=== PATIENT | female | born 1955 | race Two or more races ===

== ENCOUNTER 2016-08-08 08:46 | Outpatient (CLI) | payer BC ==
[~2016-08-08 08:46] MED LIST: AMLO10TA2 PO; ASPI81TA2 PO; ATEN25TA PO; LISI40TA4 PO; METH5TAB6 PO; SIMV20TA2 PO
== END 2016-08-08 23:59 | disposition home or self-care (01) ==
LOC: MRI 08:46
PROVIDERS: ATTEND Legal Medicine
DX: M48.02 Spinal stenosis, cervical region (principal); M50.21 Other cervical disc displacement, high cervical region; M50.222 Other cervical disc displacement at C5-C6 level; M12.88 Other specific arthropathies, not elsewhere classified, other specified site; M51.26 Other intervertebral disc displacement, lumbar region; M40.46 Postural lordosis, lumbar region; M24.50 Contracture, unspecified joint
CPT/HCPCS: 72141-TC; 72148-TC

== ENCOUNTER 2017-10-29 08:44 | Outpatient (CLI) | payer BC ==
[~2017-10-29 08:44] MED LIST changes: +ASPI-1169 PO; -ASPI81TA2 PO
== END 2017-10-29 23:59 | disposition home or self-care (01) ==
LOC: MRI 08:44
PROVIDERS: ATTEND Legal Medicine
DX: S83.242A Other tear of medial meniscus, current injury, left knee, initial encounter (principal); M22.42 Chondromalacia patellae, left knee; M25.462 Effusion, left knee; R60.9 Edema, unspecified; X58.XXXA Exposure to other specified factors, initial encounter; Y93.89 Activity, other specified; Y92.89 Other specified places as the place of occurrence of the external cause; Y99.8 Other external cause status
CPT/HCPCS: 73721-TC

== ENCOUNTER 2020-09-14 11:37 | Outpatient (CLI) | payer BC ==
[~2020-09-14 11:37] MED LIST changes: +AMLO-213 PO; -AMLO10TA2 PO; +LISI40TA13 PO; -LISI40TA4 PO
== END 2020-09-14 23:59 | disposition home or self-care (01) ==
LOC: MRI 11:37
PROVIDERS: ATTEND Legal Medicine
DX: M47.22 Other spondylosis with radiculopathy, cervical region (principal); M50.13 Cervical disc disorder with radiculopathy, cervicothoracic region; M51.26 Other intervertebral disc displacement, lumbar region; M48.061 Spinal stenosis, lumbar region without neurogenic claudication; M25.78 Osteophyte, vertebrae
CPT/HCPCS: 72141-TC; 72148-TC

== ENCOUNTER → 2021-02-19 | Outpatient (CLI) | payer BC | END | disposition home or self-care (01) | LOC: MRI 10:07 | PROVIDERS: ATTEND Neurological Surgery | DX: M50.21 Other cervical disc displacement, high cervical region (principal); M48.02 Spinal stenosis, cervical region; M25.78 Osteophyte, vertebrae | CPT/HCPCS: 72141-TC ==

== ENCOUNTER 2021-03-15 08:29 | Outpatient (CLI) | payer BC | END 2021-03-15 23:59 | disposition home or self-care (01) | LOC: LAB 08:29 | PROVIDERS: ATTEND Specialist | DX: Z01.812 Encounter for preprocedural laboratory examination (principal); Z20.822 Contact with and (suspected) exposure to COVID-19 | CPT/HCPCS: C9803; U0003 ==

== ENCOUNTER 2021-03-22 05:34 | Inpatient (IN) | payer BC ==
[~2021-03-22] VITALS: Ht 160 cm; Wt 68.0 kg
--- NOTE | 2021-03-22 06:00 | NUR ---
MS LICENSED MARRIAGE AND FAMILY THERAPIST NOTE PATIENT ARRIVED TO UNIT FOR DAY SURGERY COMPLETELY AMBULATORY. A/OX4. NO S/S OF DISTRESS; BREATHING UNLABORED; BREATHING ON ROOM AIR. IV INSERTED 18# RAC SL. PATIENT WAS ORIENTED TO UNIT. HOSPITAL GOWN GIVEN. VS WNL (SEE NOTED DOCUMENTATION). BELONGINGS WERE ACCOUNTED FOR AND LOGGED IN SHEET AND PLACED IN CHART. PATIENT IS DUE FOR DAY SURGERY LATER ON THIS A.M. CONSENTS SIGNED. SAFETY MEASURES IN PLACE: BED AT LOWEST POSITION, RAILS UPX2, CALL [place] WITHIN REACH.
[2021-03-22] MEDS ORDERED: ROSU40TA PO (06:44)
[2021-03-22] MEDS ORDERED: ALEN70SO3 PO (06:44)
[2021-03-22] MEDS ORDERED: LEVO25TA7 PO (06:44)
[2021-03-22] MEDS ORDERED: APIX5TAB PO (06:44)
[2021-03-22] MEDS ORDERED: DAPA1TAB5 PO (06:44)
[2021-03-22 07:20] VITALS: BP 145/71
[2021-03-22] MEDS ORDERED: BUPIVACAINE MPF W/EPI 0.25% 30 ML VIAL ONE (07:50)
[2021-03-22] MEDS ORDERED: LIDOCAINE 1% INJ 50 ML MDV IJ ONE (07:50)
[2021-03-22] MEDS ORDERED: CEFAZOLIN 1 GM ONE (07:50)
[2021-03-22] MEDS ORDERED: HEMOSTATIC MATRIX 8 ML 1 EACH PAD MC ONE ×3 (07:51→12:00)
[2021-03-22] MEDS ORDERED: GELATIN SPONGE,ABSORBABLE 1 EA SPONGE TP ONE (07:52)
[2021-03-22] MEDS ORDERED: THROMBIN (BOVINE) 5,000 UNITS VIAL TP ONE (07:53)
[2021-03-22] MEDS ORDERED: PROPOFOL 100 ML ONE ×2 (07:55→07:56)
[2021-03-22] MEDS ORDERED: HYDROMORPHONE INJ 2 MG/ML DISP.SYRIN ONE (07:56)
[2021-03-22] MEDS ORDERED: ROCURONIUM BROMIDE 50 MG/5 ML ONE (07:56)
--- NOTE | 2021-03-22 08:00 | NUR ---
MS/RN OPENING NOTES Received patient in bed, A/O x4, able to make needs known. The patient is scheduled to undergo total disk arthroplasty of C3-C4 and C5-C6 with possible fusion by Dr. Joel Pepe today. All consents signed, checklist done by previous nurse. Patient was picked up by OR Nurse for surgery.
[2021-03-22] MEDS ORDERED: DEXAMETHASONE SOD PHOSPHATE 4 MG/ML VIAL ONE (08:33)
[2021-03-22 09:21] VITALS: BP 127/65
[2021-03-22] MEDS ORDERED: LACT1CAP69 PO (11:03)
[2021-03-22] MEDS ORDERED: TURM500C9 PO (11:03)
[2021-03-22] MEDS ORDERED: CHOL400T15 PO (11:03)
[2021-03-22] MEDS ORDERED: CLOP75TA15 PO (11:03)
[2021-03-22] MEDS ORDERED: MAGN250T2 PO (11:03)
[2021-03-22] MEDS ORDERED: ASCO100031 PO (11:03)
[2021-03-22] MEDS ORDERED: ZINC1CAP2 PO (11:03)
[2021-03-22] MEDS ORDERED: GLUC100017 PO (11:03)
[2021-03-22] MEDS ORDERED: HYDROCODONE/APAP 5/325MG TABLET PO PRN (14:00)
[2021-03-22] MEDS ORDERED: DOCUSATE SODIUM 100 MG CAPSULE PO PRN (14:00)
[2021-03-22] MEDS ORDERED: HYDROMORPHONE 1 MG/1 ML DISP.SYRIN IV PRN (14:00)
[2021-03-22] MEDS ORDERED: ACETAMINOPHEN 325 MG TABLET PO PRN (14:00)
--- NOTE | 2021-03-22 14:30 | NUR ---
MS/RN RECEIVING NOTES PATIENT IS ALERT, SLIGHTLY LETHARGIC. ORIENTED PATIENT AT THE UNIT. PATIENT IS S/P TOTAL DISK ARTHROPLASTY OF C3-C4, C5 AND C6 WITH DR. DOVE. SOFT COLLAR AT ALL TIMES, HEMOVAC ON NECK WITH BLOODY, VERY MINIMAL DRAIN. IV ACCESS ON RIGHT AC #18G IS INTACT AND PATENT ON SALINE LOCK. NO PAIN REPORTED. V/S TAKEN FOLLOWS: BP-110/69, 02 SAT AT 98% ROOM AIR, RR-17, T-98.1. WILL CONTINUE TO MONITOR.
[2021-03-22 16:00] VITALS: BP 139/75
[2021-03-22] MEDS: ANCEF 1 GM/50 ML D5W IV SCH (17:11)
--- NOTE | 2021-03-22 19:54 | NUR ---
MS/RN CLOSING NOTES PATIENT IS ALERT AND ORIENTED X4, ABLE TO MAKE NEEDS KNOWN. STABLE ON ROOM AIR. NO PAIN REPORTED AT THIS TIME. NECK COLLAR ON. HEMOVAC WITH MINIMAL DRAINING. IV ACCESS ON RIGHT AC#18G ON SALINE LOCK. SAFETY PRECAUTIONS IN PLACED: BED LOCKED ON LOWEST POSITION, SIDE RAILS UPX3, CALL LIGHT WITHIN REACH. WILL CONTINUE TO MONITOR.
[2021-03-22 20:00] VITALS: BP 134/82
--- NOTE | 2021-03-22 20:09 | NUR ---
MS/RN OPENING NOTES PATIENT IS ALERT AND ORIENTED X4, ABLE TO MAKE NEEDS KNOWN. STABLE ON ROOM AIR. NO PAIN REPORTED AT THIS TIME. NECK COLLAR ON. HEMOVAC WITH MINIMAL DRAINING. IV ACCESS ON RIGHT AC#18G ON SALINE LOCK. SAFETY PRECAUTIONS IN PLACED: BED LOCKED ON LOWEST POSITION, SIDE RAILS UPX3, CALL LIGHT WITHIN REACH. PT GAVE NURSE A FAX FROM DR JIMENEZ OFFICE STATING PT IS TO HAVE X-RAY OF THE SPINE TOMORROW CALLED [facility] DR MORSE TO CLARIFY IS X RAY SHOULD BE ORDERED PER MD CROWDER TO PUT IN ORDER FOR TOMORROW. WILL CONTINUE TO MONITOR.
[2021-03-22] MEDS: HYDROCODONE/APAP 5/325MG TABLET PO PRN (20:44)
--- NOTE | 2021-03-22 20:44 | NUR ---
MS RN NOTES PT HAVING SHOULDER NAD NECK PAIN 5/10 PRN NORCO 325 GIVEN PT ONLY WANTED TO TAKE HALF TABLET OTHER HALF DISCARDED WITH CRUZITO MÁRQUEZ. WILL CONTINUE TO MONITOR.
[2021-03-23] MEDS: ANCEF 1 GM/50 ML D5W IV SCH (00:34)
--- NOTE | 2021-03-23 01:22 | NUR ---
MS RN NOTES WHILE HANGING PTS SCHEDULED DOSE OF ANCEF 00:34 NURSE AND PT NOTED PREVIOUS DOSE OF ANCEF WAS HUNG BUT NOT ADMINISTERED PER PT" I WANT ANOTHER DOSE OF ANCEF ORDERED THE PREVIOUS DOSE WAS NOT ADMINISTERED I DO NOT WANT TO GET AN INFECTION PLEASE HAVE IT GIVEN TOMORROW MORNING" WILL ENDORSE TO DAY SHIFT NURSE SINCE DOSE WOULD BE DUE IN 8 HRS WHICH WOULD ME NEXT SHIFT. CHARGE NURSE MADE AWARE. WILL CONTINUE TO MONITOR.
[2021-03-23] MEDS: HYDROCODONE/APAP 5/325MG TABLET PO PRN ×2 (02:28→06:52)
--- NOTE | 2021-03-23 02:32 | NUR ---
MS RN NOTES PT REQUESTED PRN NORCO 5-325 MG FOR 5/10 SHOULDER/ NECK PAIN PT AGAIN REQUESTED ONLY HALF THE PILL BE GIVEN. SUGGESTED SHE TRY THE FULL DOSE IT WILL RELIEVE HER PAIN FOR A LONGER PERIOD OF TIME PER PT " I DONT LIKE TAKING PAIN MEDICATION I DON'T EVER TAKE IT ITS TOO STRONG FOR ME THIS IS ENOUGH." DISCARDED OTHER HALF OF PILL WITH [place]. WILL CONTINUE TO MONITOR.
[2021-03-23] MEDS ORDERED: MENTHOL/CETYLPYRD (CEPACOL) 1 LOZ LOZENGE PO PRN (06:30)
--- NOTE | 2021-03-23 06:52 | NUR ---
MS RN NOTES PT REQUESTED NORCO 5-325MG FOR 5/10 PAIN PT AGAIN ONLY WANTS TO TAKE HALF OF THE PILL RISK AND BENEFITS EXPLAINED X3 I EXPLAINED TO PT SHE WILL BE HAVING PT TODAY AND IT WOULD BE BEST TO HAVE PAIN MEDICATION TO HELP HER TOLERATE THE PT AND WILL HELP HELP HER START MOVING WHICH WILL HELP HER RECOVER FASTER. PER PT " OKAY AFTER THEY DO MY X- RAY THIS MORNING I AGREE TO TAKE 2 TAB OF NORCO 5-325MG IF I FEEL LIKE I NEED IT. WILL ENDORSE TO DAY SHIFT NURSE TO FOLLOW UP. INCENTIVE SPINTOMETER ALSO AT PT BEDSIDE EXPLAINED HOW TO USE PT US CURRENTLY USING IT.WILL CONTINUE TO MONITOR.
--- NOTE | 2021-03-23 07:09 | NUR ---
MS/RN CLOSING NOTES PATIENT IS ALERT AND ORIENTED X4, ABLE TO MAKE NEEDS KNOWN. STABLE ON ROOM AIR. NO PAIN REPORTED AT THIS TIME. NECK COLLAR ON. HEMOVAC WITH MINIMAL DRAINING UNABLE TO MEASURE DRAINING SCANT. IV ACCESS ON RIGHT AC#18G ON SALINE LOCK. SAFETY PRECAUTIONS IN PLACED: BED LOCKED ON LOWEST POSITION, SIDE RAILS UPX3, CALL LIGHT WITHIN REACH. TABLE WITHIN REACH. INCENTIVE SPIROMETER AT BEDSIDE ENCOURAGED TO USE. ALL DUE MEDS GIVEN AND TOLERATED WELL.. WILL ENDORSE CRAE TO DAY SHIFT NURSE.
--- NOTE | 2021-03-23 07:25 | NUR ---
MS RN OPENING NOTES RECEIVED PATIENT IN BED AWAKE, A/O X4, ABLE TO MAKE NEEDS KNOWN. EVEN CHEST EXPANSION DURING RESPIRATIONS WITH NO S/SX OF SOB NOTED. NO PAIN VERBALIZED AT THIS TIME. REPOSITIONED PATIENT WITH NECK COLLAR IN PLACE. HEMOVAC WITH SCANT DRAINING, UNABLE TO MEASURE. IV ACCESS ON RIGHT AC #18G INTACT AND PATENT. SAFETY MEASURES IN PLACED: BED WHEELS LOCKED IN LOWEST POSITION, SIDE RAILS UP X2, CALL LIGHT WITHIN REACH. INCENTIVE SPIROMETER AT BEDSIDE ENCOURAGED TO USE. WILL CONTINUE TO MONITOR PATIENT.
[2021-03-23 08:49] VITALS: BP 130/63
[2021-03-23] MEDS ORDERED: MENTHOL/CETYLPYRD (CEPACOL) 1 LOZ LOZENGE PO ONE (08:51)
[2021-03-23] MEDS ORDERED: CEFAZOLIN 1 GM in IV D5W 50 ML IV SCH (12:00)
--- NOTE | 2021-03-23 15:04 | NUR ---
RN NOTES PATIENT COMPLETED FINAL DOSE OF ANTIBIOTIC AND IS STABLE FOR DISCHARGE. DISCHARGE INSTRUCTIONS WERE PROVIDED AND PATIENT VERBALIZED UNDERSTANDING OF DISCHARGE. EXIT CARE PLAN AND PACKET WERE GIVEN. ALL BELONGINGS ACCOUNTED FOR. ALL FORMS WERE SIGNS. IV ACCESS REMOVED AND ID BAND REMOVED. PATIENT LEFT FACILITY VIA PRIVATE CAR ACCOMPANIED BY .
[2021-03-24] MEDS ORDERED: APIXABAN 5 MG TABLET PO SCH (09:00)
[2021-03-24] MEDS ORDERED: CLOPIDOGREL BISULFATE 75 MG TABLET PO SCH (09:00)
== END 2021-03-23 15:00 | disposition home or self-care (01) | DRG 518 ==
LOC: DS 05:34 → MED 05:35
PROVIDERS: ADMIT Legal Medicine; ATTEND Legal Medicine
PROC: 0RR30JZ Replacement of Cervical Vertebral Disc with Synthetic Substitute, Open Approach (ICD-10-PCS; principal; 2021-03-22)
PROC: 0RR30JZ Replacement of Cervical Vertebral Disc with Synthetic Substitute, Open Approach (ICD-10-PCS; 2021-03-22)
DX: M50.022 Cervical disc disorder at C5-C6 level with myelopathy (principal); M48.02 Spinal stenosis, cervical region; I10 Essential (primary) hypertension; E11.9 Type 2 diabetes mellitus without complications; I25.10 Atherosclerotic heart disease of native coronary artery without angina pectoris; E05.90 Thyrotoxicosis, unspecified without thyrotoxic crisis or storm; E78.5 Hyperlipidemia, unspecified; I48.0 Paroxysmal atrial fibrillation; M17.12 Unilateral primary osteoarthritis, left knee; M35.00 Sjogren syndrome, unspecified; Z86.16 Personal history of COVID-19; Z98.61 Coronary angioplasty status
CPT/HCPCS: 72040-TC; 87081-TC; 97116-TC; 97530-TC; G0378; J0690; J1100; J1170; J3490; J7050; J7060

== ENCOUNTER 2021-04-02 10:18 | Outpatient (CLI) | payer BC ==
[~2021-04-02 10:18] MED LIST changes: +ALEN70SO3 PO; +APIX5TAB PO; +ASCO100031 PO; -ASPI-1169 PO; +CHOL400T15 PO; +CLOP75TA15 PO; +DAPA1TAB5 PO; +GLUC100017 PO; +LACT1CAP69 PO; +LEVO25TA7 PO; +MAGN250T2 PO; -METH5TAB6 PO; +ROSU40TA PO; -SIMV20TA2 PO; +TURM500C9 PO; +ZINC1CAP2 PO
== END 2021-04-02 23:59 | disposition home or self-care (01) ==
LOC: RAD 10:18
PROVIDERS: ATTEND Specialist
DX: S13.140A Subluxation of C3/C4 cervical vertebrae, initial encounter (principal); M48.02 Spinal stenosis, cervical region; M50.20 Other cervical disc displacement, unspecified cervical region; M46.02 Spinal enthesopathy, cervical region; M85.88 Other specified disorders of bone density and structure, other site; X58.XXXA Exposure to other specified factors, initial encounter; Y93.89 Activity, other specified; Y92.89 Other specified places as the place of occurrence of the external cause; Y99.8 Other external cause status
CPT/HCPCS: 72040-TC

== ENCOUNTER 2021-04-30 09:44 | Outpatient (CLI) | payer BC | END 2021-04-30 23:59 | disposition home or self-care (01) | LOC: RAD 09:44 | PROVIDERS: ATTEND Specialist | DX: M48.02 Spinal stenosis, cervical region (principal) | CPT/HCPCS: 72040-TC ==